=== PATIENT | male | born 1995 | race Caucasian/White ===

== ENCOUNTER 2023-12-08 09:39 | Emergency (ER) | payer BC, OTHER ==
[2023-12-08] VITALS (19 sets, daily range): BP systolic 112–131; BP diastolic 76–109
[~2023-12-08] VITALS: Ht 170.2 cm; Wt 45.2 kg
[2023-12-08] MEDS ORDERED: KETOROLAC TROMETHAMINE 15 MG/ML SDV IV STA (10:28)
[2023-12-08] MEDS ORDERED: SODIUM CHLORIDE 0.9% 1,000 ML IV STA (10:28)
[2023-12-08] MEDS ORDERED: ONDANSETRON HCl 4 MG/2 ML SDV IV STA (10:28)
[2023-12-08] MEDS ORDERED: Pantoprazole Sodium 40 MG VIAL (Protonix) IV STA (10:28)
[2023-12-08 11:16] LABS: BASO% 0.3 % (0-3); EOS% 0.1 % (0-8); HEMATOCRIT 46.5 % (39.0-50.0); HEMOGLOBIN 14.5 g/dl (14.0-18.0); IMMATURE GRANULOCYTES 0.6 % (0.0-5.0); LYMPH% 11.2 % (15-41); MEAN CELL VOLUME 77.4 fL CALC (80.0-100.0); MEAN CORPUSCULAR HGB 24.1 pG CALC (26.0-32.0); MEAN CORPUSCULAR HGB CONC 31.2 g/dL CAL (32.0-36.0); MONO% 16.7 % (2-13); NEUT# 4.93 thou/uL (1.82-7.42); NEUT% 71.1 % (42-76); RED BLOOD COUNT 6.01 mill/uL (4.70-6.10); RED CELL DISTRI WIDTH 18.3 % (11.5-15.5)
[2023-12-08 11:53] LABS: ALBUMIN 4.7 g/dL (3.2-5.0); BILIRUBIN, TOTAL 0.6 mg/dL (0.2-1.3); CREATININE 0.6 mg/dL (0.7-1.3); POTASSIUM 4.2 mmol/l (3.5-5.1); TOTAL PROTEIN 7.8 g/dL (6.3-8.2)
== END 2023-12-08 15:10 | disposition home or self-care (01) | DRG 179 ==
LOC: ED 09:39
PROVIDERS: Emergency Medicine
DX: U07.1 COVID-19 (principal); R50.9 Fever, unspecified; R11.2 Nausea with vomiting, unspecified; M79.10 Myalgia, unspecified site
CPT/HCPCS: J2470